=== PATIENT | female | born 1980 | race Caucasian/White ===

== ENCOUNTER 2017-03-10 12:45 | Day surgery (SDC) | payer OTHER ==
[~2017-03-10] VITALS: Ht 170.2 cm; Wt 54.9 kg
[~2017-03-10 12:45] MED LIST: 0.9% Sodium Chloride 1,000 ML IV SCH; CHOL400T PO; OMEP40CA36 PO; Sodium Chloride LOK Flush 10 mL Syringe IV PRN; fentaNYL-PF 50 mCg/mL 2 mL Inj IVPUSH PRN
[2017-03-10] MEDS ORDERED: RANI75TA21 PO (13:58)
[2017-03-10 14:00] VITALS: BP 104/70; PULSE 65; RESP 14; O2SAT 100
[2017-03-10 14:51] VITALS: BP 99/60; PULSE 74; RESP 14; O2SAT 99
[2017-03-10 15:10] VITALS: BP 93/63; PULSE 84; RESP 16; O2SAT 100
[2017-03-10 15:19] VITALS: BP 101/68; PULSE 65; RESP 16; O2SAT 100
--- NOTE | 2017-03-10 22:24 | ENDO ---
[address] [address] ENDOSCOPY PROCEDURE PATIENT: ROSITA FRIEND : 1980 MR#: [id number] ADMIT: 03/10/2017 JOB ID: [id number] PROCEDURE: Esophagogastroduodenoscopy. INDICATIONS: Dyspepsia. A 36-year-old woman presents to endoscopy today with complaints of epigastric pain with occasional radiation to the back and rectal bleeding. The patient's ASA classification is 1. Mallampati score is 1. MEDICATIONS: 1. Versed 6 mg. 2. Fentanyl 100 mcg. INSTRUMENT USED: GIF H 180 J. PROCEDURE DETAILS: After informed consent was obtained, the patient was brought into the GI suite, where she was placed on oxygen via nasal cannula and monitored with continuous pulse oximeter, telemetry, and blood pressure monitoring. A time-out was performed. Then, she was placed in the left lateral decubitus position and medications were administered for sedation. Bite block was placed. The standard EGD scope was then inserted through the bite block and advanced under direct visualization to second portion of the duodenum without difficulty. FINDINGS: 1. Normal-appearing duodenal bulb, first and second portion. Multiple random biopsies were obtained. 2. Normal-appearing pylorus, antrum and gastric body. Multiple random biopsies were obtained. 3. Retroflexed views in the gastric body revealed a normal-appearing cardia and fundus. 4. The GE junction was at approximately 42 cm. Arising from the GE junction there were two short tongues of salmon-colored mucosa arising from the GE junction suggestive of gastroesophageal reflux. Multiple biopsies were obtained. There was also hyperemia noted in the mucosa at the GE junction and just proximal to that. The remainder of the esophagus otherwise unremarkable. IMPRESSION: Esophagitis. Otherwise normal exam to second portion of duodenum. RECOMMENDATIONS: Await biopsy results. If biopsies are unrevealing, would recommend imaging of the abdomen to further evaluate her complaints of epigastric pain. COMPLICATIONS: None. ESTIMATED BLOOD LOSS: Less than 5 mL. PROCEDURE PERFORMED: Colonoscopy. INDICATION: Rectal bleeding. Please see above for ASA classification, Mallampati score, and medications. INSTRUMENT: PCF H 180 AL. PREP QUALITY: Good. PROCEDURE DETAILS: After completion of the EGD exam, the patient was then turned and a digital rectal exam was performed and was unremarkable. The colonoscope was then inserted into the rectum and advanced under direct visualization to the terminal ileum which was identified by the presence of the ileocecal valve and villous-appearing mucosa of the terminal ileum. Once the terminal ileum was reached, the colonoscope was withdrawn back to the rectum as the mucosa and lumen were examined. In the rectum, retroflexion was performed. Following retroflexion, remaining air in the rectum was suctioned, and procedure was completed. FINDINGS OF PROCEDURE: 1. Normal exam from rectum to terminal ileum. 2. Retroflexed views in the rectum revealed small internal hemorrhoids. ASSESSMENT: Small internal hemorrhoids. Suspected to be the etiology for her bleeding. RECOMMENDATION: Stool softeners and trial of Anusol HC suppositories if bleeding persists. COMPLICATIONS OF PROCEDURE: None. BLOOD LOSS: Zero.
--- NOTE | 2017-03-14 14:58 | PATH ---
SURGICAL PATHOLOGY Attending Physician:Yamila Underwood CASE STATUS: Signed Out PATIENT NAME: ROSITA FRIEND PID: [id number] : 1980 DATE COLLECTED:03/10/2017 00:00 SPECIMEN: 1: Duodenum, Biopsy 2: Gastric, Biopsy 3: Esophagus, Biopsy CLINICAL HISTORY: 1. DUODENUM BX 2. GASTRIC BX 3. DISTAL ESOPHAGUS BX FINAL DIAGNOSIS: 1.DUODENAL BIOPSY: FRAGMENTS OF NORMAL-APPEARING SMALL BOWEL MUCOSA. Normal delicate mucosal villi present. Negative for significant inflammation, dysplasia and malignancy. 2.GASTRIC BIOPSIES: MILD CHRONIC GASTRITIS INVOLVING ANTRAL AND FUNDIC MUCOSA. Negative for evidence of Helicobacter. Negative for intestinal metaplasia. Negative for dysplasia and malignancy. 3.DISTAL ESOPHAGUS BIOPSY: FRAGMENTS OF SQUAMOUS MUCOSA AND GASTRIC CARDIA-TYPE MUCOSA NEGATIVE FOR SPECIALIZED METAPLASIA OF BENNETT' S-TYPE ESOPHAGUS. Negative for dysplasia and malignancy. Negative for squamous intraepithelial eosinophils. ICD10 code K29.70 GROSS DESCRIPTION: The specimen is received in two formalin filled containers labeled with the patient's name. 1). The specimen is sublabeled "duodenum" and consists of 3 tiny portions of tissue which aggregate to 0.4 x 0.2 x 0.1 CM. The specimen is entirely submitted in cassette 1A. 2). The specimen is sublabeled "gastric" and consists of 2 portions of tissue which aggregate to 0.3 x 0.3 x 0.2 CM. Specimen is entirely submitted in cassette 2A. 3). The specimen is sublabeled "distal esophagus" and consists of 2 portions of tissue which aggregate to 0.2 x 0.2 x 0.2 CM. The specimen is entirely submitted in cassette 3A. 03/11/2017 [facility] MICRO DESCRIPTION: See diagnosis. ICD-9 CODES: CPT CODES: 1: 89473 2: 05819 3: 34658 Electronically Signed Out Jalen Chapman MD [facility] Pathology [facility] [place] [address] Technical component performed at [facility], [facility] [address], [place], [address]
== END 2017-03-10 23:59 | disposition home or self-care (01) ==
LOC: END 12:45
PROVIDERS: ATTEND Internal Medicine Gastroenterology
DX: K20.9 Esophagitis, unspecified (principal); R13.14 Dysphagia, pharyngoesophageal phase; R10.13 Epigastric pain; K64.8 Other hemorrhoids; K62.89 Other specified diseases of anus and rectum
CPT/HCPCS: 43239; 45378; 99153; G0500; J7030